=== PATIENT | female | born 1950 | race Hispanic/Latino ===

== ENCOUNTER 2024-09-18 13:59 | Emergency (ER) | payer MEDICARE ==
[2024-09-18] MEDS ORDERED: Ondansetron ODT 4 MG TAB ONE (15:14)
== END 2024-09-18 16:22 | disposition home or self-care (01) ==
LOC: CSHERS 13:59
DX: S06.0X0A Concussion without loss of consciousness, initial encounter (principal); D35.00 Benign neoplasm of unspecified adrenal gland; M54.50 Low back pain, unspecified; I72.8 Aneurysm of other specified arteries; W18.30XA Fall on same level, unspecified, initial encounter
CPT/HCPCS: 70450; 72131; 99284; Q0162